=== PATIENT | female | born 1985 | race Caucasian/White ===

== ENCOUNTER → 2019-07-26 | Outpatient (CLI) | payer OTHER ==
[2019-07-26 09:44] LABS: HCT 40.8 % (34.0-46.0); HGB 13.6 gm/dL (11.4-16.0); MCHC 33.3 g/dL (31.0-37.0); MCV 84.2 fL (80.0-100.0); Mean Platelet Volume 8.6; Platelet Count 208 k/uL (150-450); RBC 4.85 m/uL (3.80-5.40); RDW 13.4 % (11.5-15.5); WBC 4.4 k/uL (3.8-10.6)
[2019-07-26 13:41] LABS: Chol/HDL Ratio 5.25; LDL Cholesterol,Calculated 110.2 mg/dL (0.0-131.0); VLDL Calculation 42.8 mg/dL (5.00-40.00)
[2019-07-26 13:48] LABS: Prolactin 8.4 ng/mL (2.8-29.2); T3, Uptake 30 % (23-37); T4, Free (Free Thyroxine) 1.2 ng/dL (0.80-1.80)
[2019-07-26 13:49] LABS: Estradiol 62.8 pg/mL; Follicle Stimulating Hormone 4.6 mIU/mL; Luteinizing Hormone 4.5 mIU/mL
[2019-07-26 13:52] LABS: Progesterone <0.2 ng/mL
== END | disposition home or self-care (01) ==
LOC: LABWHC1 09:15
PROVIDERS: ATTEND Obstetrics & Gynecology
DX: N93.8 Other specified abnormal uterine and vaginal bleeding (principal); Z13.29 Encounter for screening for other suspected endocrine disorder; Z13.220 Encounter for screening for lipoid disorders
CPT/HCPCS: 36415; 80061; 82670; 82947; 83001; 83002; 84144; 84146; 84439; 84443; 84479; 85027

== ENCOUNTER → 2019-09-10 | Outpatient (CLI) | payer OTHER ==
--- NOTE | 2019-09-10 08:50 | US ---
EXAMINATION TYPE: US transvaginal DATE OF EXAM: 09/10/2019 COMPARISON: NONE CLINICAL HISTORY: N93.8 Other specified abnormal uterine and vaginal. DUB TECHNIQUE: Transvaginal (TV). EXAM MEASUREMENTS: Uterus: 7.7 x 4.1 x 5.6 cm Endometrial Stripe: 1.3 cm 1. Uterus: Anteverted Nabothian cysts. 2. Endometrium: wnl 3. Right Ovary: Obscured by overlying bowel gas 4. Left Ovary: Obscured by overlying bowel gas 5. Bilateral Adnexa: wnl 6. Posterior cul-de-sac: wnl IMPRESSION: Endometrial thickness is within normal limits for a premenopausal female. Uterus is unrem arkable. Ovaries are obscured by bowel gas.
== END | disposition home or self-care (01) ==
LOC: RADUSMAIN 07:49
PROVIDERS: ATTEND Obstetrics & Gynecology
DX: N93.8 Other specified abnormal uterine and vaginal bleeding (principal)
CPT/HCPCS: 76830